=== PATIENT | female | born 1955 | race Caucasian/White ===

== ENCOUNTER → 2016-05-14 | Outpatient (CLI) | payer BC ==
[~2016-05-14] MED LIST: ATOR1TAB19 PO; CLAR1TAB2 PO; ENAL5TAB PO; IBUP600T26 PO; OMEP40CA2 PO
[2016-05-14 12:56] LABS: MEAN CORPUSCULAR HEMOGLOBIN 30.3 pg (27.0-33.0); MEAN CORPUSCULAR VOLUME 91.6 fl (80.0-96.0); RED CELL DISTRIBUTION WIDTH 12.8 % (11.5-14.5); WHITE BLOOD COUNT 8.8 K/mm3 (4.0-10.0)
[2016-05-14 13:10] LABS: INR 0.97
[2016-05-14 13:49] LABS: ALBUMIN 3.7 GM/DL (3.2-5.2); ALBUMIN/GLOBULIN RATIO 1.28 (1.00-1.93); ALKALINE PHOSPHATASE 115 U/L (45-117); ALT/SGPT 37 U/L (12-78); ANION GAP 11 MEQ/L (8-16); AST/SGOT 29 U/L (15-37); BILIRUBIN,TOTAL 0.6 MG/DL (0.2-1.0); BLOOD UREA NITROGEN 20 MG/DL (7-18); CALCIUM LEVEL 9.1 MG/DL (8.8-10.2); CARBON DIOXIDE LEVEL 28 MEQ/L (21-32); CHLORIDE LEVEL 104 MEQ/L (98-107); CREATININE FOR GFR 0.69 MG/DL (0.55-1.02); GLOMERULAR FILTRATION RATE > 60.0 (>45); GLUCOSE, FASTING 82 MG/DL (80-110); POTASSIUM SERUM 4.1 MEQ/L (3.5-5.1); SODIUM LEVEL 143 MEQ/L (136-145); TOTAL PROTEIN 6.6 GM/DL (6.4-8.2)
--- NOTE | 2016-05-14 14:48 | REP ---
CHEST X-RAY: TWO VIEWS. HISTORY: Hypertension. FINDINGS: The lungs are symmetrically aerated and clear. Pleural angles are sharp. The heart is normal in size. Pulmonary vasculature is not increased. There is a dextroconvex thoracolumbar curve and a levoconvex lumbar curve. There are mild degenerative changes in the thoracic spine. IMPRESSION: Mild scoliosis. Otherwise no active disease. Signed by Sp Galo MD 05/14/2016 05:00 P
--- NOTE | 2016-05-14 18:41 | ECGEPIP ---
Stationary ECG Study [facility] Test Date: 2016-05-14 Pat Name: BHARATHI RUDOLPH Department: Room: - Gender: F Pan Dumper: KIERA : 1955 Requested By: Main Hernandez Order Number: [id number] Reading MD: Jose Daniel Jennings Measurements Intervals Alpha Rate: 84 P: 15 VT: 184 QRS: -30 QRSD: 97 T: 3 QT: 396 QTc: 468 Interpretive Statements SINUS RHYTHM BORDERLINE LEFT AXIS DEVIATION MODERATE VOLTAGE CRITERIA FOR LVH, CONSIDER NORMAL VARIANT NO PRIOR TRACING IN THE SYSTEM Electronically Signed On 05-14-2016 18:41:20 EDT by Jose Daniel Jennings
== END ==
LOC: M ADMPAT 11:32
PROVIDERS: ATTEND Orthopaedic Surgery
DX: M17.12 Unilateral primary osteoarthritis, left knee (principal)

== ENCOUNTER 2016-05-24 10:00 | Inpatient (IN) | payer BC ==
[2016-05-14 12:15] VITALS: BP 124/94
[2016-05-24] VITALS (7 sets, daily range): BP systolic 124–161; BP diastolic 62–72; O2SAT 95
[~2016-05-24] VITALS: Ht 162.6 cm; Wt 102.1 kg
[2016-05-24] MEDS ORDERED: LR 1,000 ML IV SCH ×4 (11:45→18:00)
[2016-05-24] MEDS ORDERED: CLINDAMYCIN 600 MG in APPROPRIATE DILUENT 1 EA IV ONE (12:00)
[2016-05-24] MEDS ORDERED: COUM1TAB17 PO (12:35)
[2016-05-24] MEDS ORDERED: MIDAZOLAM INJ 2 MG/2 ML VIAL (J2250) As Ordered ONE ×2 (13:14→13:41)
[2016-05-24] MEDS ORDERED: fentaNYL 100 MCG/2 ML INJECTION (J3010) As Ordered ONE ×3 (13:14→13:41)
[2016-05-24] MEDS ORDERED: BUPIVACAINE HCL 0.25% 30 ML VIAL As Ordered ONE (13:24)
[2016-05-24] MEDS ORDERED: TRANEXAMIC ACID 100 MG/ML 10ML VIAL As Ordered ONE (13:24)
[2016-05-24] MEDS ORDERED: CLINDAMYCIN INJ 900MG/6ML VIAL As Ordered ONE (13:24)
[2016-05-24] MEDS ORDERED: EPINEPHrine INJ 1 MG/ML 1ML VIAL/AMP As Ordered ONE (13:24)
[2016-05-24] MEDS: MIDAZOLAM INJ 2 MG/2 ML VIAL (J2250) IV PRN ×2 (13:25→13:28)
[2016-05-24] MEDS ORDERED: PROPOFOL 200 MG/20 ML VIAL As Ordered ONE (13:42)
[2016-05-24] MEDS ORDERED: fentaNYL 100 MCG/2 ML INJECTION (J3010) IV PRN ×2 (14:00→17:15)
--- NOTE | 2016-05-24 14:21 | HPE ---
DATE OF ADMISSION: 05/24/2016 The patient seen and examined. She wished to have a left total knee arthroplasty. She apparently has a nickel allergy, so we have arranged to use the Panchal and Nephew prosthesis, which is absent of nickel. She understands the nature of the procedure, the risks of bleeding, infection, damage to nerves, vessels, persistent pain, wear, loosening, blood clots, medical problems, , among others. A preoperative clearance was obtained.
[2016-05-24] MEDS ORDERED: WARFARIN SOD 5 MG TAB PO SCH (17:00)
[2016-05-24] MEDS ORDERED: MORPHINE PCA 1MG/ML 100ML CADD As Ordered ONE (17:12)
[2016-05-24] MEDS ORDERED: PERCOCET 5MG/325MG TAB PO PRN (17:15)
[2016-05-24] MEDS ORDERED: MEPERIDINE INJ 25 MG/ML VIAL (J2175) IV PRN (17:15)
[2016-05-24] MEDS ORDERED: ONDANSETRON 4MG/2ML VIAL (J2405) IV PRN ×2 (17:15→17:30)
[2016-05-24] MEDS ORDERED: METOCLOPRAMIDE INJ 10MG/2ML VIAL (J2765) IV PRN (17:15)
--- NOTE | 2016-05-24 17:26 | RO ---
DATE OF PROCEDURE: 05/24/2016 PREOPERATIVE DIAGNOSIS: Left knee osteoarthritis. POSTOPERATIVE DIAGNOSIS: Left knee osteoarthritic . PROCEDURE: Left total knee arthroplasty using a Panchal Nephew Janet with Oxinium femoral component with no nickel. Size 3 femur, size 3 tibia, 15 insert fixed bearing cruciate retaining and a 29 patellar button. SURGEON: Dr. David CHAMBERSTRANSACTION MANAGER: Jonathon Louis ANESTHESIA: Spinal. ESTIMATED BLOOD LOSS: Less than 50. COMPLICATIONS: None. INDICATIONS: This is a 60-year-old woman who has had some gradually worsening knee pain with advanced arthritis. She has failed conservative management. She has actually been through a knee replacement on the right in the past and wished to go ahead with the left knee replacement. She apparently has a significant allergy to nickel and so we elected to go ahead with the Panchal Nephew system which is absent of nickel. She understood the nature of procedure, risks of bleeding, infection, damage to nerves, vessels, persistent pain, wear, loosening, blood clots, medical problems, instability, . among others. PROCEDURE: Patient taken to the operating room and placed supine position after spinal anesthesia was induced. Left lower extremity was prepped and draped in usual sterile fashion. A time-out was performed. Tourniquet was inflated. I then created longitudinal incision over the anterior aspect of left knee and sharp dissection was carried down subcutaneous tissue. I performed a medial parapatellar arthrotomy per routine, everted the patella flexed the knee up, removed some of the fat pad and did a medial release. Her tissues were really quite friable and almost infiltrated with fatty tissue in some areas. We then used a canal initiating reamer followed by the intramedullary guide set at 5 and 10 and this was pinned in place by the blood donor unit assistant. The distal femoral cut was made by the blood donor unit assistant while we protected the soft tissue using the Panchal Nephew guides. I then sized the femur to be a 3 and pinned this in place and used the external rotation guide to pin holes in the end of the femur. Then used the four-in-one cutting block which was secured down to the femur. Then made the remaining four cuts. Again, protecting soft tissues at all times. We then prepared the tibia. The external and a guide was then placed in the appropriate amount of valgus and posterior slope. We impacted this in place and then I pinned it at about 11 mm off of the high side which seemed to be an appropriate cut on the medial side. Pinned this in place and secured the cutting block which was then used to make the proximal tibia cut. The bone was removed and then used a resident athletic trainer to remove soft tissue from either side of the knee and some small osteophytes posteriorly. At this point the sized 3 tibia tray was placed and it seemed to fit appropriately. We put the trial femoral component on. We had actually prior to this used the spacer blocks and determined that a size 15 seemed to be the appropriate thickness of polyethylene for stability in flexion and extension. Overall pleased with the alignment and position and stability of the components. The trial components were then placed. I put the knee through range of motion, marked the rotation of the tibial component and then prepared the tibia by drilling and broaching. Once this was accomplished we freehand cut the patella. I removed about 7 mm of bone and sized the patella to be a 29 which then drill holes were placed using the a clamp and the trial components were placed. I put the knee through range of motion and the patella tracked well. The component seemed to be well seated in good alignment. The punch was used to create holes in the end of the femur through the femoral component. I then removed the trial component. The blood donor unit assistant prepared the bone cement in the modern technique. I irrigated copiously with antibiotic pulsatile irrigation throughout the knee. I dried the bony surfaces and the tibial component was cemented in first, impacted in place removed excess bone cement. We then cemented on the femoral component, removed excess bone cement and again this was Oxinium and the excess bone cement was removed. We then placed the polyethylene and I seated it in posteriorly and then used the insertion device to clip and placed. Cemented on the patellar component and held this in place with a clamp. We removed all excess bone cement, irrigated copiously, put the TXA solution in. I put the knee through range of motion. The patella was tracking quite nicely. I did final irrigation prior to the TXA solution which was then placed as we were closing the deep layer. The deep layer was closed some interrupted #1 Vicryl suture. I then used two running Stratafix sutures running in opposite directions . The blood donor unit assistant did one direction, I did the other and we made a watertight closure for the deep layer. I then irrigated, closed subcu with #2-0 Vicryl and the skin with #3-0 nylon as she was concerned about being with billy. The PainBuster catheter was inserted through the superolateral aspect the knee and inserted and primed and hooked up in the usual fashion. Sterile dressing was applied. Tourniquet was deflated prior wound closure and she was taken to recovery in stable condition. No known complications. The plan be routine postop. This blood donor unit assistant was instrumental in holding retractors and positioning the knee and making the distal femoral cut and mixing the bone cement and assisting in wound closure. This was coded as an unusually difficult procedure, as the patient had to be a body mass index (BMI) just under 40, had a significantly obese leg which made exposure and visualization and positioning in trialing of the components more challenging, made wound closure more challenging and certainly increases the perioperative/postoperative risks.
[2016-05-24] MEDS ORDERED: MORPHINE PCA 1MG/ML 100ML CADD IV PRN (17:30)
[2016-05-24] MEDS ORDERED: NALOXONE INJ 0.4 MG/1 ML VIAL (J2310) IV PRN (17:30)
[2016-05-24] MEDS ORDERED: EPIDURAL/PCA KEYS XX PRN (17:30)
[2016-05-24] MEDS ORDERED: ACETAMINOPHEN TAB 650MG DOSE (2X325MG) PO PRN (17:30)
[2016-05-24] MEDS ORDERED: diphenhydrAMINE INJ 50MG/ML VIAL (J1200) IV PRN (17:30)
[2016-05-24] MEDS ORDERED: NALBUPHINE HCL 10 MG/ML AMP (J2300) IV PRN (17:30)
[2016-05-24] MEDS ORDERED: FLEET ENEMA PR PRN (17:30)
[2016-05-24] MEDS ORDERED: PATIENT IS CURRENTLY ON AN ON-Q PAIN BUSTER PAIN RELIEF SYSTEM XX SCH (18:45)
[2016-05-24] MEDS ORDERED: BISACODYL 5 MG TAB PO PRN (19:30)
--- NOTE | 2016-05-24 19:51 | CR.PDOC ---
[facility] Consultation Consultation DATE OF CONSULTATION: PRIMARY CARE PHYSICIAN: REFERRING PROVIDER: Cade Cotto M.D. ATTENDING PHYSICIAN: Dr. Main Hernandez REASON FOR CONSULTATION/CHIEF COMPLAINT: . HISTORY OF PRESENT ILLNESS: . 60-year-old female with past medical history of hypertension, dyslipidemia, GERD , and osteoarthritis was admitted to [facility] for progressive left knee pain and stiffness requiring left total knee arthroplasty performed by orthopedic surgery earlier today. At this time, the patient states that she is feeling relatively well, and denies any acute complaints of fevers, chills, shortness of breath, chest pain, palpitations, abdominal pain, or any nausea/vomiting/ diarrhea. The hospitalist service has been consulted for further management of the patient's chronic medical comorbidities. ALLERGIES: Please see below. HOME MEDICATIONS: Please see below. PAST MEDICAL HISTORY: As noted in HPI. PAST SURGICAL HISTORY: Right total knee arthroplasty FAMILY HISTORY: Noncontributory SOCIAL HISTORY: Denies tobacco or illicit drug use, occasionally drinks alcohol REVIEW OF SYSTEMS: 10 point review systems negative unless otherwise specified in HPI PHYSICAL EXAMINATION: VITAL SIGNS: Please see below. GENERAL APPEARANCE: . Awake, alert, in no acute distress HEENT: . Normocephalic atraumatic RESPIRATORY: . Clear to auscultation bilaterally CARDIOVASCULAR: . Normal rate, normal rhythm ABDOMEN: . Soft, nontender, nondistended EXTREMITIES: . Left knee wrapped in surgical dressing, no bleeding for purulent drainage noted to dressing. Range of motion limited secondary to recent surgery. Neurovascularly intact LABORATORY DATA: Please see below. ASSESSMENT/PLAN: Status post left total knee arthroplasty Pain management and DVT prophylaxis as per orthopedic surgery Hypertension Will hold the patient's enalapril for now, resume in the a.m. Check BMP, CBC in the a.m. Dyslipidemia Continue statin GERD Continue PPI DVT prophylaxis-as per primary team Vital Signs/I&O Vital Signs Date Time Temp Pulse Resp B/P Pulse Ox O2 Delivery O2 Flow Rate FiO2 05/24/16 18:18 14 Nasal Cannula 05/24/16 17:32 85 94 05/24/16 17:30 131/63 05/24/16 17:30 2.0 05/24/16 17:20 96.3 Allergies Coded Allergies: Latex (Unverified Allergy, Severe, SCRATCHY THROAT DIFFF BREATHING, ) Nickel (Verified Allergy, Intermediate, SKIN BREAKS DOWN -INFECTED, ) Penicillins (Verified Allergy, Intermediate, HIVES, 05/24/16) Sulfa Antibiotics (Verified Allergy, Intermediate, HIVES, 05/24/16) Home Medications Scheduled Atorvastatin Calcium (Atorvastatin Calcium) 10 Mg Tab 10 MG PO DAILY (Reported ) Enalapril Maleate (Enalapril Maleate) 5 Mg Tab 5 MG PO DAILY (Reported) Loratadine (Claritin) 10 Mg Tab #30 10 MG PO DAILY (Reported) Omeprazole (Omeprazole) 40 Mg Cap 40 MG PO DAILY (Reported) Warfarin Sod (Coumadin) 5 Mg Tab 5 MG PO 1T (Reported) Scheduled PRN Ibuprofen (Ibuprofen) 600 Mg Tab #30 600 MG PO Q6H PRN PRN PAIN (Reported) CADE COTTO MD May 24, 2016 19:51
[2016-05-24] MEDS: CLINDAMYCIN 600 MG in APPROPRIATE DILUENT 1 EA IV SCH (22:24)
[2016-05-25 02:00] VITALS: BP 140/72
[2016-05-25] MEDS: CLINDAMYCIN 600 MG in APPROPRIATE DILUENT 1 EA IV SCH (05:59)
[2016-05-25 06:00] VITALS: BP 153/80
[2016-05-25 06:37] LABS: MEAN CORPUSCULAR HGB CONC 32.8 g/dl (32.0-36.5); MEAN CORPUSCULAR VOLUME 91.5 fl (80.0-96.0); RED CELL DISTRIBUTION WIDTH 12.9 % (11.5-14.5); WHITE BLOOD COUNT 18.8 K/mm3 (4.0-10.0)
[2016-05-25 06:40] LABS: INR 1.19
[2016-05-25] MEDS ORDERED: PERCOCET 5MG/325MG TAB PO PRN (06:45)
[2016-05-25] MEDS ORDERED: ONDANSETRON 4 MG TAB (S0181) PO PRN (06:45)
[2016-05-25] MEDS ORDERED: dexameTHASONE 10 MG/1 ML VIAL PRES.FREE (J1100) ONE (07:19)
[2016-05-25] MEDS ORDERED: ROPIvacaine 0.5% 30 ML INJECTION (J2795) ONE (07:19)
--- NOTE | 2016-05-25 09:12 | REP ---
Clinical: Status post knee replacement. Technique AP and cross-table lateral views. Findings: The patient is status post left knee replacement with normal positioning and appearance to the femoral and tibial components. Overlying postsurgical changes appreciated. Impression: Status post left knee replacement. Signed by Aj Durbin MD 05/25/2016 09:04 A
[2016-05-25] MEDS: SENOKOT S TAB PO SCH ×2 (09:20→20:39)
[2016-05-25] MEDS: LORATADINE 10 MG TAB PO SCH (09:20)
[2016-05-25] MEDS: MOM 30ML SUSPENSION UDC PO SCH (09:20)
[2016-05-25] MEDS: MIRALAX *UNIT DOSE* 17GM PACKET PO SCH (09:20)
[2016-05-25] MEDS: ATORVASTATIN 10 MG TAB PO SCH (09:21)
[2016-05-25] MEDS: OMEPRAZOLE 20 MG CAP PO SCH (09:21)
[2016-05-25] MEDS: PERCOCET 5MG/325MG TAB PO PRN ×2 (09:22→15:41)
[2016-05-25 10:00] VITALS: BP 132/59
[2016-05-25 14:00] VITALS: BP 133/64
--- NOTE | 2016-05-25 15:42 | IPN ---
DATE: 05/25/2016 Ms. Harris is feeling well this morning. She would like a Percocet and some medicine for assistance with moving her bowels this morning. No chest pain. No shortness of breath. Tolerating a diet. Temperature is 97.3, pulse 103, respiratory rate 14, blood pressure 153/80, 96% on two liters. Awake, appropriately interactive, pleasantly conversant. I:E ratio is 1:3. No wheezes, rales, or rhonchi. Heart is in a regular rate and rhythm, distant sounding. Abdomen is soft. LABORATORY DATA: White cell count is 18.8, hemoglobin 13.6, and platelets of 250. INR is 1.19. ASSESSMENT: This is a 60-year-old postoperative day number one for left total knee replacement. PLAN: 1. Patient has had a left total knee replacement. Pain management, deep vein thrombosis (DVT) prophylaxis, activity, bowel regimen, and eventual discharge per orthopedics. 2. For hypertension, patient has enalapril as an outpatient which is currently appropriately held in the postoperative setting. We will consider again as needed. 3. Patient has hyperlipidemia. Continue atorvastatin postoperatively. 4. Patient has gastroesophageal reflux disease (GERD). Continue omeprazole.
[2016-05-25] MEDS ORDERED: WARFARIN SOD 5 MG TAB PO ONE (17:00)
[2016-05-25 22:00] VITALS: BP 147/72
[2016-05-26] MEDS: PERCOCET 5MG/325MG TAB PO PRN ×3 (01:45→14:02)
[2016-05-26 06:00] VITALS: BP 127/58
[2016-05-26 07:22] LABS: MEAN CORPUSCULAR HEMOGLOBIN 29.8 pg (27.0-33.0); MEAN CORPUSCULAR HGB CONC 32.5 g/dl (32.0-36.5); MEAN CORPUSCULAR VOLUME 91.7 fl (80.0-96.0); RED CELL DISTRIBUTION WIDTH 13.2 % (11.5-14.5); WHITE BLOOD COUNT 16.4 K/mm3 (4.0-10.0)
[2016-05-26] MEDS: MOM 30ML SUSPENSION UDC PO SCH (08:08)
[2016-05-26] MEDS: LORATADINE 10 MG TAB PO SCH (08:08)
[2016-05-26] MEDS: SENOKOT S TAB PO SCH (08:08)
[2016-05-26] MEDS: ATORVASTATIN 10 MG TAB PO SCH (08:08)
[2016-05-26] MEDS: OMEPRAZOLE 20 MG CAP PO SCH (08:08)
[2016-05-26] MEDS: MIRALAX *UNIT DOSE* 17GM PACKET PO SCH (08:08)
[2016-05-26] MEDS ORDERED: PERC5TAB6 PO (08:30)
[2016-05-26] MEDS ORDERED: COUM2.5T11 PO (08:30)
[2016-05-26 10:00] VITALS: BP 166/79
--- NOTE | 2016-05-26 13:55 | IPN ---
DATE OF SERVICE: 05/26/2016 The patient is feeling well today. She has no complaints of pain. No chest pain. No shortness of breath. Is tolerating a diet. On physical examination, temperature is 97.2, pulse 94, respiratory rate 17, blood pressure 127/58, 96% on room air. Intake and output (I and O) notable for a negative fluid balance of -525. She is awake, appropriately interactive, pleasantly conversant. Breathing is symmetrical, rested. I-to-E ratio is 1:3. No wheezes, rales, or rhonchi. Speaking in complete sentences. No accessory muscle use. Heart is in a regular rate and rhythm. Abdomen soft, doughy, hypoactive bowel sounds. White cell count 16.4. My assessment is as follows: This is a 60-year-old, postoperative day #2 for a left total knee replacement. The plan is as follows: 1. The patient has had left total knee replacement. Pain management and deep venous thrombosis (DVT) prophylaxis, activity, bowel regimen, and discharge per orthopedics. 2. For hypertension, the patient has been restarted on enalapril at the time of discharge. Blood pressure is reasonably well controlled. 3. The patient has hyperlipidemia. Continue atorvastatin in the postoperative setting. 4. The patient has gastroesophageal reflux disease (GERD). Continue omeprazole.
[2016-05-26 14:00] VITALS: BP 148/68
[2016-05-26] MEDS ORDERED: WARFARIN SOD 5 MG TAB PO ONE (17:00)
--- NOTE | 2016-05-28 15:41 | DSES ---
DATE OF ADMISSION: 05/24/2016 DATE OF DISCHARGE: 05/26/2016 ATTENDING PHYSICIAN: Main Hernandez MD ADMISSION DIAGNOSIS: Osteoarthritis left knee. OTHER DIAGNOSES: Hypertension, gastric reflux disease, elevated cholesterol and seasonal allergies. DISCHARGE DIAGNOSIS: Osteoarthritis left knee status post left total knee arthroplasty. OPERATION PERFORMED: Left total knee arthroplasty utilizing a Panchal Nephew device secondary to a nickel allergy. HISTORY: This is a pleasant 60-year-old female patient with progressively worsening left knee pain and stiffness. She failed to improve with conservative management. She was admitted for elective knee replacement on the left side. HOSPITAL COURSE: The patient was admitted on day of surgery and underwent a left total knee arthroplasty which was uneventful. She did well in the postoperative period and hospital course was without complications. She was up with physical therapy per their protocol and pain was controlled. On day of discharge she was doing well, weightbearing as tolerated on her left lower extremity. She will move her left knee to prevent stiffness. She will use adjusted dose Coumadin and thromboembolism deterrent (PATITO) stockings for deep venous thrombosis (DVT) prophylaxis. She will use oral pain medications for pain control. She will resume her preoperative medications and diet. She was given instructions to include but not limited to wound monitoring and activity limitations. She will followup in our office in 10-14 days for surgical followup. Please refer to the medical record for further detail.
== END 2016-05-26 15:56 | disposition home or self-care (01) | DRG 302 ==
LOC: M OR 11:22 → M MS5PR 18:00
PROVIDERS: ADMIT Orthopaedic Surgery; ATTEND Orthopaedic Surgery
PROC: 0SRD0J9 Replacement of Left Knee Joint with Synthetic Substitute, Cemented, Open Approach (ICD-10-PCS; principal; 2016-05-24 15:45)
DX: M17.12 Unilateral primary osteoarthritis, left knee (principal); I10 Essential (primary) hypertension; K21.9 Gastro-esophageal reflux disease without esophagitis; E78.5 Hyperlipidemia, unspecified; Z88.0 Allergy status to penicillin; Z88.2 Allergy status to sulfonamides; Z79.899 Other long term (current) drug therapy; Z91.040 Latex allergy status

== ENCOUNTER → 2018-07-13 | Outpatient (REF) | payer BC ==
[~2018-07-13] MED LIST changes: +COUM1TAB17 PO; +COUM2.5T17 PO; +IBUP-1022 PO; -IBUP600T26 PO; +PERC5TAB12 PO
== END ==
LOC: M LAB LCGH 13:07
PROVIDERS: ATTEND Physician Assistant
DX: D23.5 Other benign neoplasm of skin of trunk (principal)

== ENCOUNTER → 2018-08-30 | Outpatient (REF) | payer BC | LOC: M LAB LCGH 15:36 | PROVIDERS: ATTEND Surgery | DX: D49.2 Neoplasm of unspecified behavior of bone, soft tissue, and skin (principal) ==